=== PATIENT | female | born 1995 | race Two or more races ===

== ENCOUNTER 2017-10-02 21:33 | Inpatient (IN) | payer SELFPAY ==
[2017-10-02 22:13] LABS: BILIRUBIN,URINE NEGATIVE (NEG); CLARITY,URINE CLOUDY; COLOR,URINE YELLOW; GLUCOSE,URINE NEGATIVE (NEG); NITRITE,URINE NEGATIVE (NEG); PROTEIN,URINE NEGATIVE (NEG-TRACE); UROBILINOGEN,URINE 0.2 mg/dL (0.2 mg/dL)
[2017-10-02 22:18] LABS: RBC,URINE 20-40 /HPF (0-2)
[2017-10-02 22:19] LABS: BACTERIA,URINE MODERATE /HPF (0-FEW); SQUAMOUS EPITHELIAL CELL,UR MOD /LPF; WBC,URINE 20-40 /HPF (0-4)
[2017-10-02 22:20] LABS: AMPHETAMINE/METHAMPHETAMINE NEG (NEG); BARBITURATES NEG (NEG); BENZODIAZEPINES NEG (NEG); CANNABINOIDS NEG (NEG); COCAINE NEG (NEG); ETHANOL, URINE NEG (NEG); METHADONE NEG (NEG); OPIATES NEG (NEG); PHENCYCLIDINE NEG (NEG)
[2017-10-02] MEDS ORDERED: OXYTOCIN 30 UNIT/500 ML PREMIX 500 ML IV (23:30)
[2017-10-02] MEDS ORDERED: BUTORPHANOL 2 MG/ML VIAL. IV ×2 (23:30)
[2017-10-02] MEDS ORDERED: LIDOCAINE 1% PF 30 ML VIAL. INJ (23:30)
[2017-10-02] MEDS ORDERED: fentaNYL PF VIAL 100 MCG/2 ML VIAL IV (23:30)
[2017-10-02] MEDS ORDERED: ONDANSETRON PF 4 MG/2 ML VIAL. IV (23:30)
[2017-10-02] MEDS ORDERED: 0.9 % SODIUM CHLORIDE 10 ML DISP.SYRIN. IV (23:30)
[2017-10-02] MEDS ORDERED: TERBUTALINE 1 MG/ML VIAL. SQ (23:30)
[2017-10-02] MEDS ORDERED: ACETAMINOPHEN 325 MG TABLET. PO (23:30)
[2017-10-02] MEDS: fentaNYL PF VIAL 100 MCG/2 ML VIAL IV (23:47)
[2017-10-02] MEDS: IV RINGERS,LACTATED 1000ML 1,000 ML IV ×2 (23:47→23:52)
[2017-10-02 23:56] LABS: ADD MAN DIFF? NO
[2017-10-02 23:59] LABS: BASO # 0.1 x10^3/uL (0.0-0.2); BASO % 1 % (0-3); EOS # 0.1 x10^3/uL (0.0-0.7); EOS % 1 % (0-3); HEMATOCRIT 35.9 % (36.0-47.0); HEMOGLOBIN 12.4 g/dL (12.0-15.5); LYMPH # 2.2 x10^3/uL (1.0-4.8); LYMPH % 15 % (24-48); MEAN CORPUSCULAR HEMOGLOBIN 31 pg (25-35); MEAN CORPUSCULAR HGB CONC 35 g/dL (31-37); MEAN CORPUSCULAR VOLUME 89 fL (79-100); MONO # 0.9 x10^3/uL (0.0-1.1); MONO % 6 % (0-9); NEUT # 11.2 x10^3uL (1.8-7.7); NEUT % 77 % (31-73); PLATELET COUNT 205 x10^3/uL (140-400); RED BLOOD COUNT 4.05 x10^6/uL (3.50-5.40); RED CELL DISTRIBUTION WIDTH 13.5 % (11.5-14.5); WHITE BLOOD COUNT 14.5 x10^3/uL (4.0-11.0)
[2017-10-03] MEDS ORDERED: ACETAMINOPHEN 325 MG TABLET. PO (00:15)
[2017-10-03] MEDS ORDERED: BENZOCAINE 20% TOPICAL AEROSOL SPRAY 57GM CAN. TP (00:15)
[2017-10-03] MEDS ORDERED: 0.9 % SODIUM CHLORIDE 10 ML DISP.SYRIN. IV (00:15)
[2017-10-03] MEDS ORDERED: HYDROCORTISONE 1% TOPICAL OINTMENT 30GM TUBE. TP (00:15)
[2017-10-03] MEDS ORDERED: MAG HYDROX/ALUMINUM HYD/SIMETH 30 ML ORAL.SUSP PO (00:15)
[2017-10-03] MEDS ORDERED: PHENYLEPH/MINERAL OIL/PETROLAT RECTAL OINTMENT 28GM TUBE. RC (00:15)
[2017-10-03] MEDS ORDERED: MMR per PROTOCOL. MC (00:15)
[2017-10-03] MEDS ORDERED: OXYTOCIN 30 UNIT/500 ML PREMIX 500 ML IV (00:15)
[2017-10-03] MEDS ORDERED: ZOLPIDEM 5 MG TABLET. PO (00:15)
[2017-10-03] MEDS ORDERED: oxyCODONE/APAP 5/325 1 TAB TABLET PO (00:15)
[2017-10-03] MEDS ORDERED: SIMETHICONE 80 MG TAB.CHEW PO (00:15)
[2017-10-03] MEDS ORDERED: diphenhydrAMINE HCL 25 MG CAPSULE PO (00:15)
[2017-10-03] MEDS ORDERED: MAGNESIUM HYDROXIDE 2,400 MG/30 ML ORAL.SUSP. PO (00:15)
[2017-10-03] MEDS: OXYTOCIN 30 UNIT/500 ML PREMIX 500 ML IV (00:33)
[2017-10-03] MEDS: IBUPROFEN 800 MG TABLET. PO ×2 (01:08→08:47)
[2017-10-03] MEDS: IBUPROFEN 600 MG TABLET. PO ×4 (06:00→20:04)
[2017-10-03] MEDS: DOCUSATE SODIUM 100 MG CAPSULE. PO (08:47)
[2017-10-04 04:49] LABS: HEMATOCRIT 34.2 % (36.0-47.0)
[2017-10-04] MEDS ORDERED: FERROUS SULFATE 325 MG TABLET. PO (08:00)
[2017-10-04 08:07] LABS: RPR Non Reactive (Non Reactive)
[2017-10-04] MEDS: IBUPROFEN 600 MG TABLET. PO (11:53)
[2017-10-04] MEDS: MEASLES, MUMPS & RUBELLA VACC 0.5 ML VIAL. VAX SQ (13:06)
== END 2017-10-04 16:03 | disposition home or self-care (01) | DRG 775 ==
LOC: 3 SO LND 21:33
PROC: 10E0XZZ Delivery of Products of Conception, External Approach (ICD-10-PCS; principal; 2017-10-02)
DX: O62.3 Precipitate labor (principal); O77.0 Labor and delivery complicated by meconium in amniotic fluid; Z37.0 Single live birth; Z3A.38 38 weeks gestation of pregnancy
CPT/HCPCS: 36415; 80307; 81001; 85014; 85025; 86593; 86850; 86900; 86901; 87086; 90707; G0378; J2590; J3010; J7120

== ENCOUNTER 2018-09-07 15:25 | Emergency (ER) | payer SELFPAY ==
[~2018-09-07] VITALS: Ht 165.1 cm; Wt 59.0 kg
[~2018-09-07 15:25] MED LIST: HYDR-3164 PO; NAPR-683 PO; PREN1TAB58 PO; asthma inhaler
[2018-09-07] MEDS ORDERED: IV NORMAL SALINE 1000ML BAG 1,000 ML IV SCH (15:50)
[2018-09-07] MEDS ORDERED: KETOROLAC 30 MG/ML VIAL. IV ONE (16:00)
[2018-09-07 16:03] LABS: BILIRUBIN,URINE SMALL (NEG); CLARITY,URINE CLEAR; COLOR,URINE AMBER; NITRITE,URINE NEGATIVE (NEG); PH,URINE 5.5; PROTEIN,URINE NEGATIVE (NEG-TRACE)
[2018-09-07 16:04] LABS: BASO % 0 % (0-3); EOS # 0.1 x10^3/uL (0.0-0.7); EOS % 0 % (0-3); HEMATOCRIT 34.9 % (36.0-47.0); HEMOGLOBIN 11.8 g/dL (12.0-15.5); LYMPH # 2.5 x10^3/uL (1.0-4.8); LYMPH % 21 % (24-48); MEAN CORPUSCULAR HEMOGLOBIN 28 pg (25-35); MEAN CORPUSCULAR HGB CONC 34 g/dL (31-37); MEAN CORPUSCULAR VOLUME 84 fL (79-100); MONO # 0.9 x10^3/uL (0.0-1.1); MONO % 7 % (0-9); NEUT # 8.4 x10^3uL (1.8-7.7); NEUT % 71 % (31-73); PLATELET COUNT 254 x10^3/uL (140-400); RED BLOOD COUNT 4.16 x10^6/uL (3.50-5.40); RED CELL DISTRIBUTION WIDTH 14.2 % (11.5-14.5); WHITE BLOOD COUNT 11.9 x10^3/uL (4.0-11.0)
[2018-09-07 16:10] LABS: SQUAMOUS EPITHELIAL CELL,UR MOD /LPF
--- NOTE | 2018-09-07 16:10 | PHYS DOC ---
Adult General Chief Complaint Chief Complaint: ABDOMINAL PAIN HPI HPI Patient is a 23 year old Uruguayan speaking female who presents with of abdominal pain. History was taking with interpretation line. Patient complaining of intermittent episodes of lower abdominal and suprapubic sharp pain without radiation for the last 3 days that gradually getting worse. Patient complaining of intermittent episodes of nausea and urinary frequency and dysuria. Patient also complaining of brownish vaginal discharge for the last 5 days. She states her menstruation that started about 10 days ago and finished a few days ago. Patient is and denies having any new sexual partner. Patient states she took [id number] pain medication without improvement of her pain. Patient denies diarrhea, constipation, fever and chills , history of the same pain. Review of Systems Review of Systems Constitutional: Denies fever or chills [] Eyes: Denies change in visual acuity, redness, or eye pain [] HENT: Denies nasal congestion or sore throat [] Respiratory: Denies cough or shortness of breath [] Cardiovascular: No additional information not addressed in HPI [] GI: Denies abdominal pain, nausea, vomiting, bloody stools or diarrhea [] : Denies dysuria or hematuria [] Musculoskeletal: Denies back pain or joint pain [] Integument: Denies rash or skin lesions [] Neurologic: Denies headache, focal weakness or sensory changes [] Endocrine: Denies polyuria or polydipsia [] All other systems were reviewed and found to be within normal limits, except as documented in this note. Current Medications Current Medications Current Medications Medications (Trade) Dose Ordered Sig/Johny Start Time Stop Time Status Last Admin Dose Admin Ceftriaxone Sodium (Rocephin) 1 gm 1X ONCE 09/07/18 16:45 09/07/18 16:46 DC 09/07/18 16:57 1 GM Ketorolac Tromethamine (Toradol 30mg Vial) 30 mg 1X ONCE 09/07/18 16:00 09/07/18 16:01 DC 09/07/18 16:25 30 MG Sodium Chloride 1,000 ml @ 1,000 mls/hr Q1H 09/07/18 15:50 09/07/18 16:49 DC 09/07/18 16:25 1,000 MLS/HR Allergies Allergies Allergies Coded Allergies Type Severity Reaction Last Updated Verified No Known Drug Allergies 08/21/15 No Physical Exam Physical Exam Constitutional: Well developed, well nourished, mild distress, non-toxic appearance. [] HENT: Normocephalic, atraumatic, oropharynx moist. Eyes: PERRLA, EOMI, conjunctiva normal, no discharge. [] Neck: Normal range of motion, no tenderness, supple, no stridor. [] Cardiovascular: Tachycardia, no murmur [] Lungs & Thorax: Bilateral breath sounds clear to auscultation [] Abdomen: Bowel sounds normal, soft, no tenderness, suprapubic guarding, no masses, no pulsatile masses. [] Skin: Warm, dry, no erythema, no rash. [] Back: No tenderness, no CVA tenderness. [] Extremities: No tenderness, no cyanosis, no clubbing, ROM intact, no edema. [] Neurologic: Alert and oriented X 3, normal motor function, normal sensory function, no focal deficits noted. [] Psychologic: Affect normal, judgement normal, mood normal. [] Current Patient Data Vital Signs Vital Signs Date Time Temp Pulse Resp B/P (MAP) Pulse Ox O2 Delivery O2 Flow Rate FiO2 09/07/18 15:30 98.7 105 18 106/56 (73) 100 Room Air 98.7 Lab Values Laboratory Tests Test 09/07/18 15:42 09/07/18 15:50 POC Urine HCG, Qualitative Hcg negative (Negative) White Blood Count 11.9 x10^3/uL (4.0-11.0) H Red Blood Count 4.16 x10^6/uL (3.50-5.40) Hemoglobin 11.8 g/dL (12.0-15.5) L Hematocrit 34.9 % (36.0-47.0) L Mean Corpuscular Volume 84 fL (79-100) Mean Corpuscular Hemoglobin 28 pg (25-35) Mean Corpuscular Hemoglobin Concent 34 g/dL (31-37) Red Cell Distribution Width 14.2 % (11.5-14.5) Platelet Count 254 x10^3/uL (140-400) Neutrophils (%) (Auto) 71 % (31-73) Lymphocytes (%) (Auto) 21 % (24-48) L Monocytes (%) (Auto) 7 % (0-9) Eosinophils (%) (Auto) 0 % (0-3) Basophils (%) (Auto) 0 % (0-3) Neutrophils # (Auto) 8.4 x10^3uL (1.8-7.7) H Lymphocytes # (Auto) 2.5 x10^3/uL (1.0-4.8) Monocytes # (Auto) 0.9 x10^3/uL (0.0-1.1) Eosinophils # (Auto) 0.1 x10^3/uL (0.0-0.7) Basophils # (Auto) 0.0 x10^3/uL (0.0-0.2) Urine Collection Type Unknown Urine Color Susy Urine Clarity Clear Urine pH 5.5 Urine Specific [place] >=1.030 Urine Protein Negative mg/dL (NEG-TRACE) Urine Glucose (UA) Negative mg/dL (NEG) Urine Ketones (Stick) Negative mg/dL (NEG) Urine Blood Small (NEG) Urine Nitrite Negative (NEG) Urine Bilirubin Small (NEG) Urine Urobilinogen Dipstick 1.0 mg/dL (0.2 mg/dL) Urine Leukocyte Esterase Moderate (NEG) Urine RBC Occ /HPF (0-2) Urine WBC 20-40 /HPF (0-4) Urine Squamous Epithelial Cells Mod /LPF Urine Bacteria Few /HPF (0-FEW) Urine Mucus Marked /LPF Sodium Level 138 mmol/L (136-145) Potassium Level 3.4 mmol/L (3.5-5.1) L Chloride Level 103 mmol/L (98-107) Carbon Dioxide Level 26 mmol/L (21-32) Anion Gap 9 (6-14) Blood Urea Nitrogen 9 mg/dL (7-20) Creatinine 0.7 mg/dL (0.6-1.0) Estimated GFR (Cockcroft-Gault) 105.6 BUN/Creatinine Ratio 13 (6-20) Glucose Level 102 mg/dL (70-99) H Calcium Level 8.3 mg/dL (8.5-10.1) L Total Bilirubin 0.5 mg/dL (0.2-1.0) Aspartate Amino Transferase (AST) 12 U/L (15-37) L Alanine Aminotransferase (ALT) 10 U/L (14-59) L Alkaline Phosphatase 57 U/L (46-116) Total Protein 7.6 g/dL (6.4-8.2) Albumin 3.5 g/dL (3.4-5.0) Albumin/Globulin Ratio 0.9 (1.0-1.7) L Lipase 91 U/L (73-393) Laboratory Tests 09/07/18 15:50 Laboratory Tests 09/07/18 15:50 EKG EKG [] Radiology/Procedures Radiology/Procedures [][facility] [address] [place] [address] IMAGING REPORT Signed PATIENT: KALPESH MOYER ACCOUNT: [id number] : 1995 LOCATION: ER AGE: 23 SEX: F EXAM STATUS: REG ER ORD. PHYSICIAN: LUIS FERNANDEZ MD REASON: lower abdominal pain for 3 days PROCEDURE: PELVIS W/TV EXAM: PELVIC ULTRASOUND. HISTORY: Pelvic pain. COMPARISON: None. FINDINGS: Sonographic evaluation of the pelvis was performed transabdominally and transvaginally. The uterus is retroverted and measures 2.0 x 4.9 x 4.2 cm. The endometrial stripe measures 3 mm. No masses are identified. There is a small amount of free fluid. The right ovary measures 4.4 x 2.0 x 2.0 cm. The left ovary measures 4.0 x 2.2 x 2.3 cm. A dominant follicle on the left measures 1.5 cm. There is normal Doppler flow bilaterally. There are no suspicious lesions. IMPRESSION: 1. No cause for pain is identified. Electronically signed by: Jose Rock MD (09/07/2018 4:59 PM) [facility] DICTATED and SIGNED BY: SANKET ROCK MD DATE: 09/07/18 877 Course & Med Decision Making Course & Med Decision Making Pertinent Labs and Imaging studies reviewed. (See chart for details) Evaluation of patient in ER showed 23-year-old female patient with complaining of intermittent episodes of lower abdominal pain and urinary frequency and dysuria for the last 3 days. Patient had suprapubic guarding with a stable vital signs and labs except for potassium of 3.4 and mild anemia. Pelvic ultrasound was unremarkable. Patient treated with IV fluid and Toradol and Rocephin and felt better. I've spoken with the patient and/or caregivers. I've explained the patient's condition, diagnosis and treatment plan based on information available to me at this time. I've answered the patient's and/or caregivers questions and addressed any concerns. The patient and/or caregivers have a good understanding the patient's diagnosis, condition and treatment plan as can be expected at this point. Vital signs have been stabilized. The patient's condition is stable for discharge from the emergency department. The patient will pursue further outpatient evaluation with her primary care provider or other designated consulting physician as outlined in the discharge instructions. Patient and/or caregivers are agreeable to this plan of care and follow-up instructions have been explained in detail. The patient and/or caregivers have received these instructions in written format and expressed understanding of these discharge instructions. The patient and her caregivers are aware that if any significant change in condition or worsening of symptoms should prompt him to immediately return to this of the closest emergency department. If an emergent department is not readily available I would encourage him to call 911. Shree Disclaimer Dragon Disclaimer This electronic medical record was generated, in whole or in part, using a voice recognition dictation system. Departure Departure Impression: Primary Impression: Urinary tract infection Additional Impressions: Hypokalemia Lower abdominal pain Chronic anemia Disposition: HOME, SELF-CARE (at 1700) Condition: IMPROVED Referrals: NO PCP (PCP) Patient Instructions: Abdominal Pain, Hypokalemia, Urinary Tract Infection Additional Instructions: Drink plenty of liquids Follow-up with your primary care physician in 3-5 days Return to ER if not getting better Scripts Naproxen (NAPROSYN) 500 Mg Tablet 1 TAB PO BID for pain, #14 TAB Prov: LUIS FERNANDEZ MD 09/07/18 Ciprofloxacin Hcl (CIPRO) 250 Mg Tablet 1 TAB PO BID for infection, #6 TAB Prov: LUIS FERNANDEZ MD 09/07/18 Problem Qualifiers LUIS FERNANDEZ MD Sep 07, 2018 16:10
[2018-09-07 16:11] LABS: BACTERIA,URINE FEW /HPF (0-FEW); RBC,URINE OCC /HPF (0-2); WBC,URINE 20-40 /HPF (0-4)
[2018-09-07 16:14] LABS: CALCIUM 8.3 mg/dL (8.5-10.1); CREATININE 0.7 mg/dL (0.6-1.0); GFR 105.6; POTASSIUM 3.4 mmol/L (3.5-5.1)
[2018-09-07 16:16] LABS: ALBUMIN 3.5 g/dL (3.4-5.0); ALBUMIN/GLOBULIN RATIO 0.9 (1.0-1.7); TOTAL BILIRUBIN 0.5 mg/dL (0.2-1.0); TOTAL PROTEIN 7.6 g/dL (6.4-8.2)
[2018-09-07] MEDS ORDERED: cefTRIAXone IV Push 1 GM VIAL. IVP ONE (16:45)
[2018-09-07] MEDS ORDERED: NAPR-683 PO (17:01)
[2018-09-07] MEDS ORDERED: CIPR250T30 PO (17:01)
--- NOTE | 2018-09-07 17:02 | RAD ---
EXAM: PELVIC ULTRASOUND. HISTORY: Pelvic pain. COMPARISON: None. FINDINGS: Sonographic evaluation of the pelvis was performed transabdominally and transvaginally. The uterus is retroverted and measures 2.0 x 4.9 x 4.2 cm. The endometrial stripe measures 3 mm. No masses are identified. There is a small amount of free fluid. The right ovary measures 4.4 x 2.0 x 2.0 cm. The left ovary measures 4.0 x 2.2 x 2.3 cm. A dominant follicle on the left measures 1.5 cm. There is normal Doppler flow bilaterally. There are no suspicious lesions. IMPRESSION: 1. No cause for pain is identified. Electronically signed by: Jose Rock MD (09/07/2018 4:59 PM) [facility]
[2018-09-07 17:10] VITALS: BP 90/53
== END 2018-09-07 17:15 | disposition home or self-care (01) ==
LOC: ER 15:25
DX: N39.0 Urinary tract infection, site not specified (principal); E87.6 Hypokalemia; D64.89 Other specified anemias; N89.8 Other specified noninflammatory disorders of vagina; R00.0 Tachycardia, unspecified
CPT/HCPCS: 36415; 76830; 76856; 80053; 81001; 81025; 83690; 85025; 87086; 96374; 96375; 99285; J0696; J1885; J7030; 99284-25

== ENCOUNTER 2020-10-20 19:49 | Observation (INO) | payer SELFPAY ==
[~2020-10-20 19:49] MED LIST changes: +CIPR250T30 PO
[2020-10-20] MEDS ORDERED: IV RINGERS,LACTATED 1000ML 1,000 ML IV SCH (20:00)
[2020-10-20 20:21] LABS: BILIRUBIN,URINE NEGATIVE (NEG); CLARITY,URINE TURBID; COLOR,URINE YELLOW; NITRITE,URINE NEGATIVE (NEG); PROTEIN,URINE NEGATIVE (NEG-TRACE); UROBILINOGEN,URINE 0.2 mg/dL (0.2 mg/dL)
[2020-10-20 20:28] LABS: BARBITURATES NEG (NEG); BENZODIAZEPINES NEG (NEG); CANNABINOIDS NEG (NEG); COCAINE NEG (NEG); METHADONE NEG (NEG); OPIATES NEG (NEG); PHENCYCLIDINE NEG (NEG)
[2020-10-20 20:30] LABS: AMPHETAMINE/METHAMPHETAMINE NEG (NEG)
[2020-10-20 20:32] LABS: WBC,URINE 20-40 /HPF (0-4)
[2020-10-20 20:33] LABS: AMORPHOUS SEDIMENT,UR PRESENT /HPF; BACTERIA,URINE MODERATE /HPF (0-FEW)
== END 2020-10-20 21:20 | disposition home or self-care (01) ==
LOC: 3 SO LND 19:49
PROVIDERS: ADMIT Obstetrics & Gynecology; ATTEND Obstetrics & Gynecology
DX: O99.891 Other specified diseases and conditions complicating pregnancy (principal); M54.9 Dorsalgia, unspecified; O26.892 Other specified pregnancy related conditions, second trimester; R10.9 Unspecified abdominal pain; Z3A.21 21 weeks gestation of pregnancy; Z79.899 Other long term (current) drug therapy
CPT/HCPCS: 59025; 80307; 81001; 87086; G0378; G0379

== ENCOUNTER 2021-02-22 15:50 | Inpatient (IN) | payer SELFPAY ==
[~2021-02-22] VITALS: Ht 154.9 cm; Wt 66.7 kg
[2021-02-22 16:46] LABS: BILIRUBIN,URINE SMALL (NEG); COLOR,URINE YELLOW; NITRITE,URINE NEGATIVE (NEG); PH,URINE 6.5 (<5.0-8.0); PROTEIN,URINE NEGATIVE (NEG-TRACE)
[2021-02-22 16:58] LABS: CLARITY,URINE HAZY
[2021-02-22 16:59] LABS: BACTERIA,URINE MANY /HPF (0-FEW)
[2021-02-22 17:03] LABS: RBC,URINE RARE /HPF (0-2)
[2021-02-22] MEDS ORDERED: TERBUTALINE 1 MG/ML VIAL. SQ PRN (18:00)
[2021-02-22] MEDS ORDERED: IBUPROFEN 400 MG TABLET. PO PRN (18:00)
[2021-02-22] MEDS ORDERED: 0.9 % SODIUM CHLORIDE 10 ML DISP.SYRIN. IV PRN ×2 (18:00→20:15)
[2021-02-22] MEDS ORDERED: OXYTOCIN 30 UNIT/500 ML PREMIX 500 ML IV PRN ×3 (18:00→20:15)
[2021-02-22] MEDS ORDERED: IV RINGERS,LACTATED 1000ML 1,000 ML IV PRN (18:00)
[2021-02-22] MEDS ORDERED: LIDOCAINE 1% PF 30 ML VIAL. INJ PRN (18:00)
[2021-02-22] MEDS ORDERED: BUTORPHANOL 2 MG/ML VIAL. IVP PRN ×2 (18:00)
[2021-02-22 18:46] VITALS: BP 103/71
[2021-02-22 18:53] LABS: BASO # 0.1 x10^3/uL (0.0-0.2); BASO % 1 % (0-3); EOS % 1 % (0-3); HEMOGLOBIN 10.5 g/dL (12.0-15.5); LYMPH # 2.4 x10^3/uL (1.0-4.8); LYMPH % 24 % (24-48); MEAN CORPUSCULAR HEMOGLOBIN 25 pg (25-35); MEAN CORPUSCULAR HGB CONC 33 g/dL (31-37); MEAN CORPUSCULAR VOLUME 78 fL (79-100); MONO # 0.7 x10^3/uL (0.0-1.1); MONO % 7 % (0-9); NEUT # 6.7 x10^3/uL (1.8-7.7); NEUT % 68 % (31-73); PLATELET COUNT 282 x10^3/uL (140-400); RED BLOOD COUNT 4.14 x10^6/uL (3.50-5.40); RED CELL DISTRIBUTION WIDTH 15.6 % (11.5-14.5); WHITE BLOOD COUNT 9.8 x10^3/uL (4.0-11.0)
[2021-02-22] MEDS ORDERED: OXYTOCIN PREMIX 30 UNIT/500 ML NS BAG. IV ONE (20:00)
--- NOTE | 2021-02-22 20:10 | PDOC1 ---
MANAGER CONSUMER INSIGHTS H&P Date of Admission: Date of Admission: Feb 22, 2021 at 15:50 History of Present Illness: EDC: 02/23/21 LMP: 05/19/20 25y @ 39.6 by L=22 who presented to L&D with ctxs. On presentation the pt was found to be dilated to 2-3 cm. After an hour the pt had progressed to 3 3cm. Since she was ctxing regularly she was admitted. PMH: Asthma, Scabies, Anemia PSH: Denies Meds: PNV All: NKDA OBHx: TSVD x 3, AB x 1 SH: no tob, no EtOH FH: noncontributory Medications: Meds: Current Medications Medications (Trade) Dose Ordered Sig/Johny Route PRN Reason Start Time Stop Time Status Last Admin Dose Admin Butorphanol Tartrate (Stadol) 2 mg PRN Q1HR PRN IVP Severe labor pain 02/22/21 18:00 02/22/21 19:06 Allergies: Coded Allergies: I S O L A T I O N *CONTACT* (Verified Allergy, Unknown, 10/26/20) ESBL No Known Medication Allergies (Verified Allergy, Unknown, 10/26/20) Physical Exam: Vital Signs: Vital Signs Date Time Temp Pulse Resp B/P (MAP) Pulse Ox O2 Delivery O2 Flow Rate FiO2 02/22/21 19:06 98 Room Air 02/22/21 18:46 99.6 107 22 103/71 (82) 99.6 PE: GENERAL: No apparent distress. Alert and oriented. HEENT: Head normocephalic, atraumatic. NECK: Supple LUNGS: Clear to auscultation. HEART: RRR, S1, S2 present, pulses intact ABDOMEN: Soft, positive bowel sounds. EXTREMITIES: No cyanosis or edema. NEUROLOGIC: Normal speech, normal tone PSYCHIATRIC: Normal affect, normal mood. SKIN: No ulceration. FHT: 120's +acels/no decels/mLTV [place]: 2 min SVE: 9/C/-1 Labs: Laboratory Tests Test 02/22/21 16:10 02/22/21 18:15 02/22/21 18:34 Urine Collection Type Unknown Urine Color Yellow Urine Clarity Hazy Urine pH 6.5 (<5.0-8.0) Urine Specific [place] 1.020 (1.000-1.030) Urine Protein Negative mg/dL (NEG-TRACE) Urine Glucose (UA) Negative mg/dL (NEG) Urine Ketones (Stick) Negative mg/dL (NEG) Urine Blood Small (NEG) Urine Nitrite Negative (NEG) Urine Bilirubin Small (NEG) Urine Urobilinogen Dipstick 1.0 mg/dL (0.2 mg/dL) Urine Leukocyte Esterase Large (NEG) Urine RBC Rare /HPF (0-2) Urine WBC 1-4 /HPF (0-4) Urine Squamous Epithelial Cells Many /LPF Urine Bacteria Many /HPF (0-FEW) Urine Mucus Marked /LPF SARS-CoV-2 Antigen (Rapid) Negative (NEGATIVE) White Blood Count 9.8 x10^3/uL (4.0-11.0) Red Blood Count 4.14 x10^6/uL (3.50-5.40) Hemoglobin 10.5 g/dL (12.0-15.5) L Hematocrit 32.0 % (36.0-47.0) L Mean Corpuscular Volume 78 fL (79-100) L Mean Corpuscular Hemoglobin 25 pg (25-35) Mean Corpuscular Hemoglobin Concent 33 g/dL (31-37) Red Cell Distribution Width 15.6 % (11.5-14.5) H Platelet Count 282 x10^3/uL (140-400) Neutrophils (%) (Auto) 68 % (31-73) Lymphocytes (%) (Auto) 24 % (24-48) Monocytes (%) (Auto) 7 % (0-9) Eosinophils (%) (Auto) 1 % (0-3) Basophils (%) (Auto) 1 % (0-3) Neutrophils # (Auto) 6.7 x10^3/uL (1.8-7.7) Lymphocytes # (Auto) 2.4 x10^3/uL (1.0-4.8) Monocytes # (Auto) 0.7 x10^3/uL (0.0-1.1) Eosinophils # (Auto) 0.0 x10^3/uL (0.0-0.7) Basophils # (Auto) 0.1 x10^3/uL (0.0-0.2) Treponema pallidum Antibody Nonreactive (Nonreactive) Laboratory Tests 02/22/21 18:34 Laboratory Tests 02/22/21 18:34 Assessment & Plan: A/P 25y @ 39.6 by L=22 1.) Active labor 2.) Late presentation to care 3.) Rub NI 4.) Gera NI 5.) TDAP given 12/07/20 6.) DPS - LUZ MARINA consent signed 12/21/20 7.) Jaret pos (10/02/20) - HUDSON neg (11/08/20) 8.) Chl pos (10/02/20) - HUDSON neg (12/07/20) 9.) Fetus cat I FHT 10.) GBS neg ANDRES THOMSON MD Feb 22, 2021 20:09
--- NOTE | 2021-02-22 20:12 | PDOC4 ---
VAGINAL DELIVERY DATE DATE: 02/22/21 TIME: 20:11 TIME Patient delivered a viable male over intact perineum at 2019. Wt 7 lb 4 oz. Apgars 9/9. Placenta delivered spontaneously, intact with 3VC. No lacerations noted. Good hemostasis noted. 20 U of Pit given with IVF. EBL 100 cc. WEIGHT Weight [ ] ANDRES THOMSON MD Feb 22, 2021 20:11
[2021-02-22] MEDS ORDERED: PHENYLEPH/MINERAL OIL/PETROLAT RECTAL OINTMENT TUBE. RC PRN (20:15)
[2021-02-22] MEDS ORDERED: MAGNESIUM HYDROXIDE 2,400 MG/30 ML ORAL.SUSP. PO PRN (20:15)
[2021-02-22] MEDS ORDERED: ZOLPIDEM 5 MG TABLET. PO PRN (20:15)
[2021-02-22] MEDS ORDERED: ACETAMINOPHEN 325 MG TABLET. PO PRN (20:15)
[2021-02-22] MEDS ORDERED: MMR per PROTOCOL. MC PRN (20:15)
[2021-02-22] MEDS ORDERED: BENZOCAINE 20% TOPICAL AEROSOL SPRAY 57GM CAN. TP PRN (20:15)
[2021-02-22] MEDS ORDERED: SIMETHICONE 80 MG TAB.CHEW PO PRN (20:15)
[2021-02-22] MEDS ORDERED: HYDROCORTISONE 1% TOPICAL OINTMENT 30GM TUBE. TP PRN (20:15)
[2021-02-22] MEDS ORDERED: TDaP (Adacel) per PROTOCOL. MC PRN (20:15)
[2021-02-22] MEDS ORDERED: oxyCODONE/APAP 5/325 1 TAB TABLET PO PRN (20:15)
[2021-02-22] MEDS ORDERED: MAG HYDROX/ALUMINUM HYD/SIMETH 30 ML ORAL.SUSP PO PRN (20:15)
[2021-02-22] MEDS ORDERED: diphenhydrAMINE HCL 25 MG CAPSULE PO PRN (20:15)
[2021-02-22] MEDS: IBUPROFEN 400 MG TABLET. PO PRN (22:17)
[2021-02-22 22:37] VITALS: BP 113/71
[2021-02-23 00:22] VITALS: BP 83/50
[2021-02-23 04:26] VITALS: BP 90/56
[2021-02-23] MEDS: IBUPROFEN 400 MG TABLET. PO PRN ×3 (06:11→23:03)
[2021-02-23] MEDS: FERROUS SULFATE 325 MG TABLET. PO SCH ×2 (08:00→17:27)
[2021-02-23 08:23] LABS: HEMATOCRIT 29.2 % (36.0-47.0); HEMOGLOBIN 9.5 g/dL (12.0-15.5); RED BLOOD COUNT 3.74 x10^6/uL (3.50-5.40); RED CELL DISTRIBUTION WIDTH 15.7 % (11.5-14.5)
[2021-02-23] MEDS: PRENATAL MULTIVITAMIN TABLET. PO SCH (09:00)
[2021-02-23 12:15] VITALS: BP 93/59
--- NOTE | 2021-02-23 12:44 | PDOC ---
LIBRARY CUSTOMER SERVICE CLERK PROGRESS NOTE Date of Service: DATE: 02/23/21 TIME: 12:43 Subjective: Pt with good pain control. Lorena PO. Voiding. Minimal lochia. Denies RAHMAN, changes in vision or abd pain Objective: Vital Signs: Vital Signs Date Time Temp Pulse Resp B/P (MAP) Pulse Ox O2 Delivery O2 Flow Rate FiO2 02/22/21 18:46 99.6 107 22 103/71 (82) 98 99.6 02/22/21 19:06 Room Air Vital Signs Date Time Temp Pulse Resp B/P (MAP) Pulse Ox O2 Delivery O2 Flow Rate FiO2 02/23/21 12:15 98.5 85 18 93/59 (70) 98.5 02/23/21 04:26 Room Air 02/22/21 19:06 98 Labs: Laboratory Tests Test 02/22/21 16:10 02/22/21 18:15 02/22/21 18:34 02/23/21 06:50 Urine Collection Type Unknown Urine Color Yellow Urine Clarity Hazy Urine pH 6.5 (<5.0-8.0) Urine Specific [place] 1.020 (1.000-1.030) Urine Protein Negative mg/dL (NEG-TRACE) Urine Glucose (UA) Negative mg/dL (NEG) Urine Ketones (Stick) Negative mg/dL (NEG) Urine Blood Small (NEG) Urine Nitrite Negative (NEG) Urine Bilirubin Small (NEG) Urine Urobilinogen Dipstick 1.0 mg/dL (0.2 mg/dL) Urine Leukocyte Esterase Large (NEG) Urine RBC Rare /HPF (0-2) Urine WBC 1-4 /HPF (0-4) Urine Squamous Epithelial Cells Many /LPF Urine Bacteria Many /HPF (0-FEW) Urine Mucus Marked /LPF SARS-CoV-2 RNA (CARL) Negative (Negative) SARS-CoV-2 Antigen (Rapid) Negative (NEGATIVE) White Blood Count 9.8 x10^3/uL (4.0-11.0) 11.0 x10^3/uL (4.0-11.0) Red Blood Count 4.14 x10^6/uL (3.50-5.40) 3.74 x10^6/uL (3.50-5.40) Hemoglobin 10.5 g/dL (12.0-15.5) L 9.5 g/dL (12.0-15.5) L Hematocrit 32.0 % (36.0-47.0) L 29.2 % (36.0-47.0) L Mean Corpuscular Volume 78 fL (79-100) L 78 fL (79-100) L Mean Corpuscular Hemoglobin 25 pg (25-35) 25 pg (25-35) Mean Corpuscular Hemoglobin Concent 33 g/dL (31-37) 33 g/dL (31-37) Red Cell Distribution Width 15.6 % (11.5-14.5) H 15.7 % (11.5-14.5) H Platelet Count 282 x10^3/uL (140-400) 252 x10^3/uL (140-400) Neutrophils (%) (Auto) 68 % (31-73) Lymphocytes (%) (Auto) 24 % (24-48) Monocytes (%) (Auto) 7 % (0-9) Eosinophils (%) (Auto) 1 % (0-3) Basophils (%) (Auto) 1 % (0-3) Neutrophils # (Auto) 6.7 x10^3/uL (1.8-7.7) Lymphocytes # (Auto) 2.4 x10^3/uL (1.0-4.8) Monocytes # (Auto) 0.7 x10^3/uL (0.0-1.1) Eosinophils # (Auto) 0.0 x10^3/uL (0.0-0.7) Basophils # (Auto) 0.1 x10^3/uL (0.0-0.2) Treponema pallidum Antibody Nonreactive (Nonreactive) Laboratory Tests 02/22/21 18:34 02/23/21 06:50 Laboratory Tests 02/23/21 06:50 Physical Exam: GENERAL: No apparent distress. Alert and oriented. HEENT: Head normocephalic, atraumatic. NECK: Supple LUNGS: Clear to auscultation. HEART: RRR, S1, S2 present, pulses intact ABDOMEN: Soft, positive bowel sounds. EXTREMITIES: No cyanosis or edema. NEUROLOGIC: Normal speech, normal tone PSYCHIATRIC: Normal affect, normal mood. SKIN: No ulceration. FFNT below umb No C/C/E Assessment & Plan: A/P 25y PPD #1 s/p 1.) PP doing well 2.) Rub NI 3.) Gera NI 4.) Hgb 10.5 -> 9.5 5.) TDAP given 12/07/20 6.) DPS Discussed alternatives and regret again with the pt. The pt is ok with an alternative 7.) Jaret pos (10/02/20) - HUDSON neg (11/08/20) 8.) Chl pos (10/02/20) - HUDSON neg (12/07/20) 9.) Cont PP care ANDRES THOMSON MD Feb 23, 2021 12:44
[2021-02-23 17:15] VITALS: BP 96/58
[2021-02-23 20:00] VITALS: BP 118/66
[2021-02-23] MEDS: DOCUSATE SODIUM 100 MG CAPSULE. PO PRN (23:03)
[2021-02-24 05:22] VITALS: BP 102/57
[2021-02-24 07:37] VITALS: BP 98/58
[2021-02-24] MEDS ORDERED: IBUP-1060 PO (10:02)
[2021-02-24] MEDS ORDERED: DOCU-109 PO (10:02)
[2021-02-24] MEDS: FERROUS SULFATE 325 MG TABLET. PO SCH (10:51)
[2021-02-24] MEDS: IBUPROFEN 400 MG TABLET. PO PRN (10:51)
[2021-02-24] MEDS: DOCUSATE SODIUM 100 MG CAPSULE. PO PRN (10:51)
[2021-02-24] MEDS: PRENATAL MULTIVITAMIN TABLET. PO SCH (10:52)
[2021-02-24] MEDS ORDERED: FLU VACC QUAD 21-22 (6MOS+) PF 0.5 ML SYRINGE. VAX IM ONE (11:00)
--- NOTE | 2021-02-24 11:20 | PDOC ---
TRAFFIC INVESTIGATOR PROGRESS NOTE Date of Service: DATE: 02/24/21 TIME: 11:20 Subjective: Pt with good pain control. Lorena PO. Voiding. Minimal lochia Objective: Vital Signs: Vital Signs Date Time Temp Pulse Resp B/P (MAP) Pulse Ox O2 Delivery O2 Flow Rate FiO2 02/23/21 12:15 98.5 85 18 93/59 (70) 98.5 02/23/21 17:15 99 Room Air Vital Signs Date Time Temp Pulse Resp B/P (MAP) Pulse Ox O2 Delivery O2 Flow Rate FiO2 02/24/21 07:37 97.8 73 14 98/58 (71) 98 Room Air 97.8 Physical Exam: GENERAL: No apparent distress. Alert and oriented. HEENT: Head normocephalic, atraumatic. NECK: Supple LUNGS: Clear to auscultation. HEART: RRR, S1, S2 present, pulses intact ABDOMEN: Soft, positive bowel sounds. EXTREMITIES: No cyanosis or edema. NEUROLOGIC: Normal speech, normal tone PSYCHIATRIC: Normal affect, normal mood. SKIN: No ulceration. FFNT below umb No C/C/E Assessment & Plan: A/P 25y PPD #2 s/p 1.) PP doing well 2.) Rub NI MMR given 3.) Gera NI 4.) Hgb 10.5 -> 9.5 5.) TDAP given 12/07/20 6.) DPS Discussed alternatives and regret again with the pt. The pt is ok with an alternative 7.) Jaret pos (10/02/20) - HUDSON neg (11/08/20) 8.) Chl pos (10/02/20) - HUDSON neg (12/07/20) 9.) D/c home ANDRES THOMSON MD Feb 24, 2021 11:20
[2021-02-24] MEDS ORDERED: MEASLES, MUMPS & RUBELLA VACC 0.5 ML VIAL. VAX SQ ONE (11:30)
[2021-02-24] MEDS ORDERED: ROPIVacaine 0.2% PF 10 ML VIAL. ONE (12:11)
[2021-02-24] MEDS ORDERED: fentaNYL PF VIAL 100 MCG/2 ML VIAL ONE (12:11)
[2021-02-24] MEDS ORDERED: L&D EPIDURAL SYRINGE 0 ML ONE (12:11)
[2021-02-24] MEDS ORDERED: ONDANSETRON PF 4 MG/2 ML VIAL. IV PRN (12:15)
[2021-02-24] MEDS ORDERED: ePHEDrine PF IN SALINE 50 MG/10 ML SYRINGE. IV PRN (12:15)
[2021-02-24] MEDS ORDERED: L&D EPIDURAL SYRINGE 50 ML EPID PRN (12:15)
[2021-02-24] MEDS ORDERED: NALOXONE 0.4 MG/ML VIAL. IV PRN (12:15)
[2021-02-24] MEDS ORDERED: fentaNYL PF VIAL 100 MCG/2 ML VIAL EPID ONE (12:15)
[2021-02-24] MEDS ORDERED: IV RINGERS,LACTATED 1000ML 1,000 ML IV ONE (12:15)
--- NOTE | 2021-02-24 12:53 | DS ---
DATE OF DISCHARGE: 02/24/2021 ADMISSION DIAGNOSES: 1. Intrauterine at 39 weeks and 6 days by last menstrual period equal to 22-week ultrasound. 2. Active labor. 3. Late presentation to care. 4. Rubella nonimmune. 5. Varicella nonimmune. 6. Status post Tdap. 7. Desires permanent sterilization. 8. Gonorrhea positive with negative treatment of cure. 9. Chlamydia positive with negative treatment of cure. 10. Group B Streptococcus negative. DISCHARGE DIAGNOSES: 1. Intrauterine at 39 weeks and 6 days by last menstrual period equal to 22-week ultrasound. 2. Active labor. 3. Late presentation to care. 4. Rubella nonimmune. 5. Varicella nonimmune. 6. Status post Tdap. 7. Desires permanent sterilization. 8. Gonorrhea positive with negative treatment of cure. 9. Chlamydia positive with negative treatment of cure. 10. Group B Streptococcus negative. PROCEDURE: Spontaneous vaginal delivery. BRIEF HOSPITAL COURSE: The patient is a 25-year-old 5, para 3-0-1-3, who presented to Labor and Delivery at 39 weeks and 6 days by LMP equal to 22-week ultrasound with contractions. On presentation, the patient was found to be 2-3 cm and was regularly ronak. The patient only progressed to 3 cm, but due to irregular contractions, was admitted. The patient ultimately progressed and reached complete. The patient delivered by vaginal delivery. See delivery note for full detail. After delivery, the patient had desires for permanent sterilization. Discussion was held with the patient regarding her age and the risk of regret. The patient ultimately decided that she was okay with an alternative contraception . By day #2, the patient was meeting all discharge criteria and subsequently discharged home. Prior to discharge, the patient was given the MMR vaccine. Her hemoglobin on admission was 10.5 and after delivery, was found to be 9.5. DISCHARGE INSTRUCTIONS: The patient was told not to lift anything greater than 20 pounds, have pelvic rest for [address] on narcotics. CALL IF: The patient was to call if she had fevers, chills, nausea, vomiting, abdominal pain or any additional questions or concerns. FOLLOWUP APPOINTMENT: The patient was to follow up on 04/05/2021 at 1:15 p.m. at [facility] for her visit. DISCHARGE MEDICATIONS: The patient was given a prescription for Motrin 800 mg, 30 pills; Colace 100 mg, [address]: Claudia TID: [id number]
[2021-02-24 15:00] VITALS: BP 103/70
--- NOTE | 2021-02-24 16:37 | NUR ---
Discharge Note: KALPESH MOYER3 SO LND Discharge instructions and discharge home medications reviewed with Patient and a copy given. All questions have been answered and understanding verbalized. The following instructions and handouts were given: [facility] Patient Discharge Instruction Sheet and Medication Schedule Discharge Instructions Post Patients Depression and Baby Blues Care After Vaginal Delivery [employer] Technician - Patient discharged to home with self-care via ambulation to private vehicle.
== END 2021-02-24 15:15 | disposition home or self-care (01) | DRG 807 ==
LOC: OBSVTOIN 15:50 → 3 SO LND 15:50
PROVIDERS: ADMIT Obstetrics & Gynecology; ATTEND Obstetrics & Gynecology
PROC: 10E0XZZ Delivery of Products of Conception, External Approach (ICD-10-PCS; principal; 2021-02-22)
PROC: 3E0234Z Introduction of Serum, Toxoid and Vaccine into Muscle, Percutaneous Approach (ICD-10-PCS; 2021-02-24)
DX: O99.52 Diseases of the respiratory system complicating childbirth (principal); Z37.0 Single live birth; J45.909 Unspecified asthma, uncomplicated; Z3A.39 39 weeks gestation of pregnancy; Z20.822 Contact with and (suspected) exposure to COVID-19; Z23 Encounter for immunization
CPT/HCPCS: 36415; 81001; 85025; 85027; 86592; 86850; 86900; 86901; 87086; 87426; 90471; 90686; 90707; J0595; J2590; U0003; U0005; G0378

== ENCOUNTER 2021-10-12 14:30 | Emergency (ER) | payer SELFPAY ==
[~2021-10-12] VITALS: Ht 167.6 cm; Wt 60.0 kg
[~2021-10-12 14:30] MED LIST changes: +DOCU-109 PO; +IBUP-1060 PO
[2021-10-12 16:15] VITALS: BP 119/56
[2021-10-12] MEDS ORDERED: IPRATRPIUM/ALBUTEROL 0.5/2.5MG 3 ML NEBU. NEB ONE (16:15)
[2021-10-12] MEDS ORDERED: PRED50TA PO (16:57)
[2021-10-12] MEDS ORDERED: ALBU2.5V8 IH (16:57)
--- NOTE | 2021-10-12 16:58 | PHYS DOC ---
Past Medical History Past Medical History: No Pertinent History Past Surgical History: No Surgical History Smoking Status: Never Smoker Alcohol Use: None Drug Use: None General Adult EDM: Chief Complaint: ASTHMA HPI: HPI: Patient is a 26 year old female with history of asthma presenting to the ED today complaining of shortness of breath and chest tightness due to her asthma that began on Sunday. Patient states she does not have any of her breathing treatments at home. Denies any fever. Review of Systems: Review of Systems: Constitutional: Denies fever or chills. [] Eyes: Denies change in visual acuity. [] HENT: Denies nasal congestion or sore throat. [] Respiratory: Reports shortness of breath and chest tightness Cardiovascular: Denies chest pain or edema. [] GI: Denies abdominal pain, nausea, vomiting, bloody stools or diarrhea. [] : Denies dysuria. [] Musculoskeletal: Denies back pain or joint pain. [] Integument: Denies rash. [] Neurologic: Denies headache, focal weakness or sensory changes. [] Psychiatric: Denies depression or anxiety. [] Heart Score: C/O Chest Pain: N/A Risk Factors: Risk Factors: DM, Current or recent (<one month) smoker, HTN, HLP, family history of CAD, obesity. Risk Scores: Score 0 - 3: 2.5% MACE over next 6 weeks - Discharge Home Score 4 - 6: 20.3% MACE over next 6 weeks - Admit for Clinical Observation Score 7 - 10: 72.7% MACE over next 6 weeks - Early Invasive Strategies Current Medications: Current Medications Medications (Trade) Dose Ordered Sig/Johny Start Time Stop Time Status Last Admin Dose Admin Albuterol/ Ipratropium (Duoneb) 3 ml 1X ONCE 10/12/21 16:15 10/12/21 16:20 DC 10/12/21 16:47 3 ML Allergies: Allergies: Allergies Coded Allergies Type Severity Reaction Last Updated Verified I S O L A T I O N *CONTACT* Allergy Unknown 10/26/20 Yes No Known Medication Allergies Allergy Unknown 10/26/20 Yes Physical Exam: PE: Constitutional: Well developed, well nourished, no acute distress, non-toxic appearance. [] HENT: Normocephalic, atraumatic, bilateral external ears normal, oropharynx moist, no oral exudates, nose normal. [] Eyes: PERRLA, EOMI, conjunctiva normal, no discharge. [] Neck: Normal range of motion, no tenderness, supple, no stridor. [] Cardiovascular:Heart rate regular rhythm, no murmur [] Lungs & Thorax: Diminished air movement Abdomen: Bowel sounds normal, soft, no tenderness, no masses, no pulsatile masses. [] Skin: Warm, dry, no erythema, no rash. [] Back: No tenderness, no CVA tenderness. [] Extremities: No tenderness, no cyanosis, no clubbing, ROM intact, no edema. [] Neurologic: Alert and oriented X 3, normal motor function, normal sensory function, no focal deficits noted. [] Psychologic: Affect normal, judgement normal, mood normal. [] Current Patient Data: Vital Signs: Vital Signs Date Time Temp Pulse Resp B/P (MAP) Pulse Ox O2 Delivery O2 Flow Rate FiO2 10/12/21 16:15 98.2 83 16 119/56 (77) 98 Room Air 98.2 EKG: EKG: [] Radiology/Procedures: Radiology/Procedures: [] Course & Med Decision Making: Course & Med Decision Making Pertinent Labs and Imaging studies reviewed. (See chart for details) This a 26-year-old female patient presenting to the ED today with shortness of breath, chest tightness, history of asthma. O2 sats 98% on room air and above. Patient is afebrile. Given DuoNeb treatment in the ED. Feeling better. Discharged with albuterol inhaler and prednisone for 5 days Shree Disclaimer: Shree Disclaimer: This electronic medical record was generated, in whole or in part, using a voice recognition dictation system. Departure Departure Impression: Primary Impression: Asthma exacerbation Qualified Codes: J45.21 - Mild intermittent asthma with (acute) exacerbation Disposition: 01 HOME / SELF CARE / HOMELESS Condition: STABLE Referrals: NO PCP (PCP) Follow-up with your doctor in 1 week Patient Instructions: Asthma Prevention-Brief Additional Instructions: You were evaluated in the emergency room for asthma symptoms. Use the prescribed medications as ordered. Follow-up with your doctor in 1 week Scripts Prednisone (PREDNISONE) 50 Mg Tablet 1 TAB PO DAILY, #5 TAB Prov: ELLEN GARCIA APRN 10/12/21 Albuterol Sulfate (Proair Hfa) 8.5 Gm Hfa.aer.ad 2 PUFF IH PRN Q4-6HRS PRN for wheezing for 21 Days, #1 INHALER 0 Refills Prov: ELLEN GARCIA APRN 10/12/21 ELLEN GARCIA APRN October 12, 2021 16:58
== END 2021-10-12 17:09 | disposition home or self-care (01) ==
LOC: ER 14:30
DX: J45.21 Mild intermittent asthma with (acute) exacerbation (principal); R07.89 Other chest pain
CPT/HCPCS: 94640; 99283